=== PATIENT | male | born 1950 | race Caucasian/White ===

== ENCOUNTER → 2023-08-10 09:13 | Outpatient (REF) | payer MEDICARE, OTHER, SELFPAY | LOC: HWRAD 09:13 | PROVIDERS: ATTENDING PHYSICIAN Internal Medicine Rheumatology; FAMILY PHYSICIAN Family Medicine | DX: M81.0 Age-related osteoporosis without current pathological fracture (principal) | CPT/HCPCS: 77080 ==

== ENCOUNTER 2023-09-10 23:50 | Emergency (ER) | payer MEDICARE, OTHER, SELFPAY ==
[2023-09-10 23:57] VITALS: BP 166/92
[2023-09-11 00:37] LABS: % Basophils 1.6 % (0-2); % Eosinophils 26.8 % (0-6); % Lymphocytes 21.9 % (20.5-51.1); % Monocytes 9.9 % (1.7-9.3); % Neutrophils 38.8 % (42.2-75.2); Absolute Basophils 0.1 10^3/uL (0-0.2); Absolute Eosinophils 1.9 10^3/uL (0-0.7); Absolute Immature Granulocytes 0.1 10^3/uL (0-0.05); Absolute Lymphocytes 1.5 10^3/uL (1.2-3.4); Absolute Monocytes 0.7 10^3/uL (0.1-0.6); Absolute Neutrophils 2.7 10^3/uL (1.4-6.5); Hematocrit 39.1 % (39.0-52.0); Hemoglobin 12.5 g/dL (13.0-18.0); Mean Corpuscular Hgb 31.5 pg (27.0-31.0); Mean Corpuscular Volume 98.5 fL (80.0-94.0); Mean Platelet Volume 9.7 fL (7.4-10.4); Nucleated Red Blood Cells % 0 % (-); Platelet Count 429 10^3/uL (130-400); Red Blood Cell Count 3.97 10^6/uL (4.70-6.10); Red Cell Dist. Width 14.9 % (11.5-14.5)
[2023-09-11 00:55] LABS: ALT (SGPT) 22 U/L (0-50); AST (SGOT) 24 U/L (17-59); Albumin 4.1 g/dl (3.5-5.0); Alkaline Phosphatase 117 U/L (38-126); Blood Urea Nitrogen 27 mg/dl (9-20); Calcium 9.2 mg/dl (8.4-10.2); Carbon Dioxide 29 mmol/L (22-30); Chloride 101 mmol/L (98-107); Glucose 105 mg/dl (70-99); Potassium 4.7 mmol/L (3.5-5.1); Sodium 137 mmol/L (135-145); Total Bilirubin 0.9 mg/dl (0.2-1.3); Total Protein 9.1 g/dl (6.3-8.2); eGFR 58.01
[2023-09-11 00:59] LABS: Troponin I < 0.012 ng/ml
[2023-09-11 01:17] VITALS: BP 171/74
[2023-09-11 02:00] VITALS: BP 163/87
[2023-09-11 03:00] VITALS: BP 155/88
[2023-09-11 04:00] VITALS: BP 147/81
[2023-09-11] MEDS: TYLENOL 650 MG PO (04:03)
[2023-09-11 05:00] VITALS: BP 145/82
[2023-09-11 05:01] LABS: Troponin I < 0.012 ng/ml
--- NOTE | 2023-09-11 05:04 | ED.GENMED ---
History of Present Illness
General
Chief Complaint: Chest Pain
Source: patient and spouse
Exam Limitations: none
Time Seen by Provider: 09/11/23 04:44
Nursing documentation reviewed up to this point in time: agreed with
Travel History
Have you had any contact with someone who has COVID-19?: No
Do you have any symptoms of coronavirus? Fever > 100 degrees, chills, cough, shortness of breath, sore throat, loss of taste or smell, muscle aches, or headache?: No
History of Present Illness
History of Present Illness:
73-year-old male presents with left-sided chest pain that began at 8 PM this evening. He states it radiates up his neck. Denies fever, chills, nausea or vomiting. States that the pain is exacerbated with deep breaths. Patient has a history of
with thoracic aneurysm. It has been stable for the last 10 or 11 years. He had his most recent imaging study that showed that it has been unchanged during this time. Patient states that his chest pain is constant. It is worsened with breathing
but it is not relieved by rest. He denies fever. Reports no nausea or vomiting. Patient is clear to statethat exertion does not exacerbate his symptoms rather just the movement of his chest wall is.
Past History
Past History
ED Past Medical History: HTN and Other (Non-Hodgkin's lymphoma. High eosinophil counts)
ED Past Surgical History: Cholecystectomy and Other (Hernia)
Social History
Tobacco: Non-smoker
Personal:
Family History
Family History: Other (Noncontributory)
Review of Systems
Review of Systems
Allergies reviewed?: Yes
Other source history: family
All Other Systems: ROS reviewed and negative except as documented in HPI and ROS
Constitutional: Reports no symptoms
EENT: Reports no symptoms
Respiratory: Reports no symptoms
Cardiac: Reports chest pain
ABD/GI: Reports no symptoms
: Reports no symptoms
Musculoskeletal: Reports no symptoms
Skin: Reports no symptoms
Neurological: Reports no symptoms
Endocrine: Reports no symptoms
Hematologic/Lymphatic: Reports no symptoms
Psychiatric: Reports no symptoms
Phy Exam
General Physical Exam
General Presentation: well appearing and no apparent distress
General Skin: warm and dry
General Habitus: normal
General Mental: alert
General Hydration: appears well hydrated
ENT Exam
ENT Exam: EOMI, pharynx normal, neck supple and normocephalic
Eye Exam
Eye Exam: PERRL, cornea clear and conjunctiva normal
Cardiovascular Exam
Cardiovascular Exam: regular rate/rhythm, no edema, no murmur and normal peripheral pulses
Pulmonary Exam
Pulmonary Exam: lungs clear, no respiratory distress, no rales, no crackles, no rhonchi, no stridor, no wheezing and no cough
Gastrointestinal Exam
Gastrointestinal Exam: normal bowel sounds, non tender, soft, no organomegaly, no pulsatile mass and non distended
Neurological Exam
Neurological Exam: alert, oriented x3, no motor deficits and speech normal
Musculoskeletal Exam
Musculoskeletal Exam: full ROM and no edema
Skin Exam
Skin Exam: normal color, warm/dry, no rash and no petechia
Psychiatric Exam
Psychiatric Exam: normal mood/affect
Scores
Heart Score for Chest Pain Patients
STEMI patient?: No
History: Slightly or Non-Suspicious
ECG: Normal
Age: </= 45 years
Risk Factors: >/= 3 Risk Factors or History of CAD
Troponin: </= Normal Limit
Heart Score for Chest Pain Patients: 2
Heart Score Risk: 2.5% MACE over next 6 weeks
Course
Orders/Labs/Results
Orders:
Orders
09/10/23 23:51
Electrocardiogram (*1) Urgent
Reason for Study: Chest Pain
EKG- Treatment ONCE
09/11/23 00:21
Electrocardiogram (*1) Urgent
Reason for Study: Chest Pain
Cardiac Monitoring- Treatment ONCE
EKG- Treatment ONCE
IV Insert/Care/Rem.- Treatment PRN
O2 Therapy [RESP] Urgent
Titrate/Wean O2 to maintain O2 sat greater than (%): 90
Special Instructions: Maintain sats >/=90%
Pulse Ox/spot Check [RESP] Urgent
Quantity: 1
Special Instructions: ON ROOM AIR
09/11/23 00:28
Complete Blood Count/With Diff Urgent
Comprehensive Metabolic Panel Urgent
Troponin I Urgent
09/11/23 03:48
Acetaminophen [Tylenol] 650 mg PO NOW STA
09/11/23 04:15
Chest [CR Chest - 2 Views ] Urgent
Comment:
Reason For Exam: Chest pain
09/11/23 04:30
Troponin I Urgent
09/11/23 05:04
CT Chest Angio W/wo Iv Contras Urgent
Reason For Exam: Known Aneurysm, CP
09/11/23 05:30
Lorazepam [Ativan] 0.5 mg IV NOW STA
09/11/23 05:31
0.9% Sodium Chloride 1000 ml [Nss] 1,000 ml IV BOLUS
Abnormal Lab Results
09/11/23
00:28
RBC 3.97 L 10^6/uL
(4.70-6.10)
Hgb 12.5 L g/dL
(13.0-18.0)
MCV 98.5 H fL
(80.0-94.0)
MCH 31.5 H pg
(27.0-31.0)
MCHC 32.0 L g/dL
(33.0-37.0)
RDW 14.9 H %
(11.5-14.5)
Plt Count 429 H 10^3/uL
(130-400)
Abs Immat Gran (auto) 0.1 H 10^3/uL
(0-0.05)
Absolute Monos (auto) 0.7 H 10^3/uL
(0.1-0.6)
Absolute Eos (auto) 1.9 H 10^3/uL
(0-0.7)
Immature Gran % 1.0 H %
(0-0.5)
Neutrophils % 38.8 L %
(42.2-75.2)
Monocytes % 9.9 H %
(1.7-9.3)
Eosinophils % 26.8 H %
(0-6)
BUN 27 H mg/dl
(9-20)
Glucose 105 H mg/dl
(70-99)
Total Protein 9.1 H g/dl
(6.3-8.2)
09/11/23 00:28
09/11/23 00:28
Vital Signs
Initial and Last Documented VS:
Initial Vital Signs
Temp Pulse Resp BP Pulse Ox
98.2 F 75 18 166/92 100
09/10/23 23:57 09/10/23 23:57 09/10/23 23:57 09/10/23 23:57 09/10/23 23:57
Last Documented Vital Signs
Temp Pulse Resp BP Pulse Ox
98.2 F 82 16 148/80 96
09/10/23 23:57 09/11/23 06:11 09/11/23 05:00 09/11/23 06:11 09/11/23 05:00
*Radiology
Radiology exam reviewed: radiology read reviewed
*Pulse Oximetry
Patient hypoxic: no
*EKG
Interpreted by ED Provider?: Yes
Interpretation: normal
Comparison EKG: no comparison EKG present
Heart Rate: 75
Rate: normal
Rhythm: PVC's
[place]: left axis deviation
Interval: normal interval
QRS Pattern: normal QRS
*Critical Care Note
Total Time (30-74mins, 75-104mins- exclusive of procedures): Not Applicable
Update Note
Update Note:
CTA chest with intravenous contrast
IMPRESSION:
No pulmonary embolus to the lobar level. Limited assessment of the segmental and subsegmental branches secondary to suboptimal bolus contrast timing and artifact.
No aortic dissection or aneurysm. Mild cardiomegaly with coronary artery disease.
Lungs are clear aside from dependent atelectasis. No pneumothorax or pleural effusion. Hepatic steatosis. Status post cholecystectomy.
Finalized at 6:09 AM EST
ED Attending Note
-
Portions of this chart may have been created with voice recognition software.� Occasional wrong word or��sound alike� substitutions may have occurred due to the inherent limitations of voice recognition software.
Discharge Plan
Departure
Patient Disposition: Home (Routine Discharge)
Date of Disposition: 09/11/23
Time of Disposition: 06:27
Patient with high blood pressure during this ER visit?: Yes
Condition: Good
Discharge Problem:
Chest pain
Instructions: Chest Pain CBC Follow Up
Prescriptions:
No Action
multivitamin Tablet
1 tab PO DAILY
cholecalciferol (vitamin D3) 25 mcg (1,000 unit) Capsule
1,000 unit PO DAILY
cetirizine [Zyrtec] 10 mg Tablet
10 mg PO DAILYPRN PRN (Reason: Hives/allergies)
methylprednisolone 4 mg Tablet
4 mg PO DAILYPRN PRN (Reason: eosinophil 'flare-up')
Patient Comments:
04/14/22: Per pt, he was diagnosed w/ rare eosinophilic disorder and takes medrol 4mg po daily for a few days when he has a 'flare-up'. States he typically takes 5-6x days per month
losartan 100 mg Tablet
100 mg PO HS
Referrals:
Tr Meadows MD [Active] - Next open appointment
Devon Gaines, DO [Family Provider] -
Activity Restrictions/Additional Instructions:
It was a pleasure meeting you and taking part in your care. We hope for your continued healing and wellness.
Please read discharge instructions in their entirety. However, they are for general education and may not describe your exact diagnosis at discharge. Information on your ER visit and medical conditions were discussed with you along with appropriate
follow up information...
If indicated, please take your medications as instructed and indicated on discharge paperwork.
Please schedule a follow up appointment as directed. Call to schedule an appointment
Please return to the emergency department with ANY change in, persisting, or worsening of symptoms. If any of your symptoms do not improve, or persist, or become more severe within 6-12 hours, please return to the emergency department for further
care.
Please return to the emergency department if you develop a headache, neck pain/stiffness, fever greater than 100.4F, chest pain, shortness of breath, persistent nausea, vomiting, slurred speech, difficulty walking, numbness/tingling, weakness, signs
of infection or any other symptoms that are worrisome to you.
If you have any questions or concerns please do not hesitate to call the Hospital at or E-mail me directly at [email or web address]
Interventions
Interventions:
*Risk Screen - Suicide Last Done: 09/11/23 01:46
*General Assessment Last Done: 09/11/23 01:46
*Neglect/Abuse Screening Last Done: 09/11/23 01:46
ED- Fall Risk Assessment Last Done: 09/11/23 01:46
*ED COVID-19 Vaccine History Last Done: 09/11/23 01:46
ED- Cardiac Assessment Last Done: 09/11/23 01:46
[2023-09-11] MEDS: NSS 1000 IV (06:08)
[2023-09-11 06:11] VITALS: BP 148/80
== END 2023-09-11 07:06 | disposition home or self-care (01) ==
LOC: EMR 23:50
PROVIDERS: EMERGENCY PHYSICIAN Student in an Organized Health Care Education/Training Program; FAMILY PHYSICIAN Family Medicine
DX: R07.89 Other chest pain (principal); I10 Essential (primary) hypertension; Z90.49 Acquired absence of other specified parts of digestive tract
CPT/HCPCS: 99285; 71046; 71275; 80053; 84484; 85025; 93005; Q9967

== ENCOUNTER → 2023-11-18 06:32 | Day surgery (SDC) | payer MEDICARE, OTHER, SELFPAY | LOC: GI 06:32 | PROVIDERS: ATTENDING PHYSICIAN Internal Medicine Gastroenterology | DX: D12.2 Benign neoplasm of ascending colon (principal); D12.3 Benign neoplasm of transverse colon; D12.4 Benign neoplasm of descending colon; K64.8 Other hemorrhoids; K31.89 Other diseases of stomach and duodenum; D50.9 Iron deficiency anemia, unspecified; D72.118 Other hypereosinophilic syndrome; Z87.19 Personal history of other diseases of the digestive system | CPT/HCPCS: 45385; 45380; 43239; 88305; 88342 ==

== ENCOUNTER → 2024-04-24 07:04 | Outpatient (REF) | payer MEDICARE, OTHER, SELFPAY | LOC: HWRCS 07:04 | PROVIDERS: ATTENDING PHYSICIAN Internal Medicine; FAMILY PHYSICIAN Family Medicine | DX: I77.810 Thoracic aortic ectasia (principal) | CPT/HCPCS: 93306 ==

== ENCOUNTER → 2024-07-05 08:41 | Outpatient (REF) | payer MEDICARE, OTHER, SELFPAY | LOC: HWRAD 08:41 | PROVIDERS: ATTENDING PHYSICIAN Internal Medicine Rheumatology; FAMILY PHYSICIAN Family Medicine | DX: C82.15 Follicular lymphoma grade II, lymph nodes of inguinal region and lower limb (principal); M25.551 Pain in right hip | CPT/HCPCS: 73523 ==

== ENCOUNTER → 2025-04-22 08:13 | Outpatient (REF) | payer MEDICARE, OTHER, SELFPAY ==
[2025-04-22 08:55] LABS: Hematocrit 39.5 % (39.0-52.0); Hemoglobin 13.1 g/dL (13.0-18.0); Mean Corp Hgb Conc. 33.2 g/dL (33.0-37.0); Mean Corpuscular Volume 98.5 fL (80.0-94.0); Platelet Count 359 10^3/uL (130-400); Red Cell Dist. Width 13.9 % (11.5-14.5)
[2025-04-22 09:25] LABS: Blood Urea Nitrogen 24 mg/dl (9-20); Calcium 9.2 mg/dl (8.4-10.2); Carbon Dioxide 28 mmol/L (22-30); Chloride 105 mmol/L (98-107); Glucose 99 mg/dl (70-99); Potassium 4.4 mmol/L (3.5-5.1); Sodium 135 mmol/L (135-145); eGFR 48.25
== END ==
LOC: SDSPAT 08:13
PROVIDERS: ATTENDING PHYSICIAN Surgery; FAMILY PHYSICIAN Family Medicine; OTHER PHYSICIAN Internal Medicine
DX: Z01.818 Encounter for other preprocedural examination (principal)
CPT/HCPCS: 80048; 85027

== ENCOUNTER → 2025-04-24 08:02 | Outpatient (REF) | payer MEDICARE, OTHER, SELFPAY | LOC: HWRCS 08:02 | PROVIDERS: ATTENDING PHYSICIAN Internal Medicine; FAMILY PHYSICIAN Family Medicine | DX: I77.810 Thoracic aortic ectasia (principal); I10 Essential (primary) hypertension | CPT/HCPCS: 93306 ==

== ENCOUNTER 2025-05-03 05:47 | Day surgery (SDC) | payer MEDICARE, OTHER, SELFPAY ==
[2025-04-22 14:07] VITALS: BMI 29.2
[2025-05-03] VITALS (7 sets, daily range): BP systolic 115–146; BP diastolic 66–85; BMI 29.2
[2025-05-03] MEDS: TYLENOL 1000 MG PO (06:17)
[2025-05-03] MEDS: NORMOSOL-R/PLASMALYTE-A 1000 IV (06:28)
--- NOTE | 2025-05-03 07:04 | HP.FOC2 ---
Focused History & Physical
Chief Complaint
HPI:
Chief Complaint: Left inguinal hernia
HPI / Indication for Planned Procedure: 75-year-old male recently seen in outpatient surgical evaluation secondary to symptomatic left inguinal hernia. Presents today for scheduled operative correction.
Relevant Past Medical History: Other (Hypertension, GERD, ascending thoracic aortic aneurysm, stage III CKD, non-Hodgkin's lymphoma with history of radiation therapy, episodic eosinophilia)
Relevant Social History: Negative
Relevant Family History: Negative
Relevant Past Surgical History: Positive for (Right inguinal herniorrhaphy, cholecystectomy, left inguinal lymph node biopsy)
Review of Systems
Review of Pertinent Systems: All Systems Negative
Medication
See Medication form for detailed medications: Yes
Medication List (including Herbals & OTC):
cholecalciferol (vitamin D3) 25 mcg (1,000 unit) capsule 1,000 unit PO HS Supplement 04/13/22
multivitamin 1 tab PO DAILY Supplement 04/13/22
cetirizine 10 mg tablet (Zyrtec) 10 mg PO DAILYPRN PRN Hives/allergies 04/14/22
losartan 100 mg tablet 100 mg PO HS Blood pressure 04/14/22
methylprednisolone 4 mg tablet 4 mg PO DAILYPRN PRN eosinophil 'flare-up' 04/14/22
Medications Reviewed: Yes
Allergies and Reactions
Patient has Allergies: Yes
Noted Allergies and Reactions:
Allergy/AdvReac Type Severity Reaction Status Date / Time
Penicillins Allergy Unknown - Verified 05/03/25 06:11
tolerated
Cefazolin
pre-op
06/17/10
adhesive tape (Adhesive Tape) AdvReac Skin Verified 05/03/25 06:11
redness
from
BandAid
ciprofloxacin (From Cipro) AdvReac Nausea / Verified 05/03/25 06:11
Vomiting
levofloxacin (From Levaquin) AdvReac Headache, Verified 05/03/25 06:11
dizziness
Pertinent Physical Exam
All Other Systems: Negative
Head/Neck: Normal
Lungs: Normal
Heart: Normal
Abdomen: Other (Reducible left inguinal hernia)
Extremities: Normal
Neurological: Normal
Diagnosis / Assessment
75-year-old male presenting for scheduled operative correction symptomatic left inguinal hernia
Plan / Procedure
Robotic assisted laparoscopic repair left inguinal hernia with mesh
Anesthesia/Sedation to be done by Anesthesia Provider: Yes
--- NOTE | 2025-05-03 07:06 | W.SUR.PREOP ---
Pre-Operative Surgical Note
-
I have examined this patient prior to the performance of the scheduled procedure.
The patient's condition is unchanged from the time of the current History and
Physical and the patient is able to undergo the scheduled procedure.
--- NOTE | 2025-05-03 08:20 | W.IMMPOSTOP ---
Addendum entered and electronically signed by Seb Langston MD 05/03/25 11:13:
#[id number]
Original Note:
Surgical Immed Post Op Note
-
Primary Surgeon: Seb Langston MD
Assisting Surgeon: DANIAL Arriaga
Pre-op Diagnosis: Left inguinal hernia
Post-op Diagnosis: Left inguinal hernia, direct
Procedure Performed: Robotic assisted laparoscopic RACHEAL repair left inguinal hernia with mesh; 3D max large mid weight
Anesthesia Type: GETA +0.25% Marcaine with epi
Specimen / Cultures: None
Estimated Blood Loss: 4 mL
Complications: None immediate
Operative Findings: Left direct inguinal hernia. Indirect, femoral locations normal. No lipoma of cord structures. 3D max large mid weight mesh repair secured to Blas's with 2-0 Vicryl stitch x 2. Peritoneal flap closed with 2-0 Monocryl
STRATAFIX spiral. No additional incidental findings.
== END 2025-05-03 10:25 | disposition home or self-care (01) ==
LOC: SDS 05:47
PROVIDERS: ATTENDING PHYSICIAN Surgery; FAMILY PHYSICIAN Family Medicine
DX: K40.90 Unilateral inguinal hernia, without obstruction or gangrene, not specified as recurrent (principal)
CPT/HCPCS: 49650; C1781

== ENCOUNTER → 2025-05-31 13:01 | Outpatient (REF) | payer MEDICARE, OTHER, SELFPAY | LOC: HWRAD 13:01 | PROVIDERS: ATTENDING PHYSICIAN Specialist; FAMILY PHYSICIAN Family Medicine | DX: R30.0 Dysuria (principal); N39.0 Urinary tract infection, site not specified | CPT/HCPCS: 74176; 87086 ==